=== PATIENT | male | born 1980 | race Caucasian/White ===

== ENCOUNTER 2017-01-31 19:21 | Emergency (ER) | payer OTHER ==
[~2017-01-31] VITALS: Ht 182.9 cm; Wt 107.5 kg
[~2017-01-31 19:21] MED LIST: MEDROL DOSEPAK4 MG PO; TYLENOL WITH C1 EACH PO
[2017-01-31 20:41] VITALS: BP 166/101
== END 2017-01-31 20:52 | disposition home or self-care (01) ==
LOC: EXP 19:21 → EME 19:21 → EXP 20:52
DX: S90.31XA Contusion of right foot, initial encounter (principal); W22.09XA Striking against other stationary object, initial encounter; Y92.89 Other specified places as the place of occurrence of the external cause
CPT/HCPCS: 73630; 99281; 99284; J1885

== ENCOUNTER 2017-04-02 09:08 | Emergency (ER) | payer OTHER ==
[~2017-04-02] VITALS: Ht 182.9 cm; Wt 105.4 kg
[2017-04-02] MEDS ORDERED: ZITHROMAX500 MG PO (10:37)
[2017-04-02] MEDS ORDERED: NAPROSYN500 MG PO (10:37)
[2017-04-02 10:59] VITALS: BP 133/78
== END 2017-04-02 11:05 | disposition home or self-care (01) ==
LOC: EME 09:08
DX: J02.0 Streptococcal pharyngitis (principal); S93.401A Sprain of unspecified ligament of right ankle, initial encounter; X50.1XXA Overexertion from prolonged static or awkward postures, initial encounter; F17.200 Nicotine dependence, unspecified, uncomplicated
CPT/HCPCS: 73610; 73630; 87651 90; 99281; 99284; J1885